=== PATIENT | female | born 1985 | race Native Hawaiian/Other Pacific Islander ===

== ENCOUNTER 2016-08-07 18:01 | Inpatient (IN) | payer OTHER ==
[2016-08-07 18:28] VITALS: BMI 28.5
[2016-08-07] MEDS: Lactated Ringer's 1,000 ML IV SCH (18:35)
[2016-08-07] MEDS ORDERED: Nalbuphine 20 mg/ml Inj (1 ml) IVP PRN (18:45)
[2016-08-07 19:19] LABS: BASO % 0.4 % (0.0-2.0); EOS % 0.6 % (0.0-4.0); HEMATOCRIT 37.2 % (34.0-47.0); LYMPH # 2.1 K/uL (1.0-4.3); LYMPH % 24.8 % (20.0-40.0); MEAN CELL VOLUME 79.7 fL (81.0-99.0); MEAN CORPUSCULAR HEMOGLOBIN 25.3 pg (27.0-31.0); MEAN CORPUSCULAR HGB CONC 31.7 g/dL (33.0-37.0); MEAN PLATELET VOLUME 10.8 fL (7.2-11.7); MONO # 0.8 K/uL (0.0-0.8); RED CELL DISTRIBUTION WIDTH 16.4 % (11.5-14.5); WHITE BLOOD COUNT 8.3 K/uL (4.8-10.8)
[2016-08-07 19:29] LABS: CHLORIDE 98 mmol/L (98-107); POTASSIUM 3.5 mmol/L (3.6-5.2); SODIUM 133 mmol/L (132-148)
[2016-08-07 19:31] LABS: CARBON DIOXIDE 22 mmol/L (22-30); GFR AFRICAN-AMERICAN > 60
[2016-08-07 19:32] LABS: ALB/GLOB RATIO 0.9 (1.0-2.1); ALKALINE PHOSPHATASE 282 U/L (38-126); ALT/SGPT 28 U/L (9-52); AST/SGOT 19 U/L (14-36); BILIRUBIN,DIRECT 0.3 mg/dL (0.0-0.4); BILIRUBIN,TOTAL 0.3 mg/dL (0.2-1.3); BLOOD UREA NITROGEN 6 mg/dL (7-17); CALCIUM 9.1 mg/dl (8.6-10.4); GLUCOSE,RANDOM 96 mg/dL (65-105)
[2016-08-07 20:22] LABS: RBC URINE 1 /hpf (0-3); URINE BACTERIA RARE (<OCC); URINE BILIRUBIN NEGATIVE (NEGATIVE); URINE BLOOD NEGATIVE (NEGATIVE); URINE COLOR Straw (YELLOW); URINE GLUCOSE (UA) NORMAL (Normal); URINE KETONE NEGATIVE (NEGATIVE); URINE LEUKOCYTE ESTERASE NEG Leu/uL (Negative); URINE PROTEIN NEGATIVE (NEGATIVE); URINE UROBILINOGEN NORMAL mg/dL (0.2-1.0); WBC URINE 1 /hpf (0-5)
[2016-08-08] MEDS: Lactated Ringer's 1,000 ML IV SCH (19:00)
[2016-08-09] MEDS ORDERED: Oxytocin 30 UNIT 500 ML IV ONE (01:53)
[2016-08-09] MEDS ORDERED: Oxytocin 30 UNIT 500 ML IV SCH ×2 (02:15)
[2016-08-09] MEDS: Lactated Ringer's 1,000 ML IV SCH ×3 (06:35→20:37)
[2016-08-09] MEDS ORDERED: cefOXitin IV 2 gm in Dextrose 50 ML IVPB ONE ×2 (09:49→09:54)
[2016-08-09] MEDS ORDERED: Sodium Citrate/Citric Acid 15 ml Sol PO ONE (09:49)
[2016-08-09] MEDS ORDERED: Oxytocin 10 Units/ml Inj ONE (09:52)
[2016-08-09] MEDS ORDERED: Sodium Citrate/Citric Acid 15 ml Sol ONE (09:52)
[2016-08-09] MEDS ORDERED: Phenylephrine 10 mg/ml Inj ONE (09:53)
[2016-08-09] MEDS ORDERED: Oxytocin 20 units in LR 2,000 ML IV ONE (09:53)
[2016-08-09] MEDS ORDERED: Morphine 1 mg/ml preservative-free Inj(Duramorph) ONE (09:56)
--- NOTE | 2016-08-09 10:06 | OBPN ---
Datetime: 08/09/2016 09:57 IP Progress Impression: Non-reassuring heart rate IP Informed Consent Obtain: Section Delivery IP Progress Plan: Deliver- Section Membranes, Provider: Intact Contraction Comments Provider: q 2-3 min now irrgular off of pitocin FHR - Baseline A Provider: 135 IP Fetus A Comments: decelerations down to 120 bpm x x 1 min with spontaneous return to baseline Gestation - Est Wks by US: 38.1 Presentation-Admit: Vertex IP Progress Note Comment: IOL for Cholestasis of @ 38+ wks s/p cervidil x 2, now on p itocin with late decerltaions not improving on left lateral decubitus position, oxygen, IVH. Pitocin was d/c and pt was counsled in regards to continuing induction of labor with possibility of more dece rltaions and intolerance to labor. Pt given options of more balloon followed by pitocin howev er declined and requesting to proceed with Cesearean section after failing to make progress. Pt advi sed latent phase of labor can be prolonged however would like to still proceed to cesearen section. VSS VE: FT/30/-3, vtx, intact EFM: 135/mod tatiana TOCO: q 2-3 min now irregular off of pitocin MEDS s/p cervidil x 2 Pitocin up to 16 mu/min A/P @ 38.1 wks GA IOL for cholestaissi of with intolerance to labor and failu re to progress -R/B/A/I of PLTCS d/w patient, consent signed -Anesthesia / OR aware -Cefoxitin 2gram IV x 1 -NPO, IVF -More to gravity -SCDS -Abdominal prep NICHD Variability Prov Fetus A: Moderate 6-25bpm Dilatation, Provider: 0 Effacement, Provider: 30 Station, Provider: -3 NICHD Decel Fetus A IP Provider: Late
[2016-08-09] MEDS ORDERED: Oxycodone/Acetaminophen 5/325 mg Tab PO PRN (10:11)
[2016-08-09] MEDS ORDERED: Hydrocodone/Acetaminophen 5 mg /300 mg Tab PO PRN (10:11)
--- NOTE | 2016-08-09 11:37 | OBDS ---
DELIVERY PERSONNEL Delivery Doctor: Cresencio Mayberry MD Anesthesiologist: Dr. Scherer MATERNAL INFORMATION Provider Comments: live male infant delivered cephalic presentation with loose nuchal cord x 1 easil y reduced and true knot in umbilical cord normal uterus, tubes and ovaries bilatearlly apgars 9,9 scrap iron loader present at delivery weight of 6lbs 11 ounces ebl 700ml LABOR SUMMARY EDC: 08/22/2016 00:00 No. Babies in Womb: 1 LABOR INFORMATION Cervical Ripening Agents: cervidil removed Other Ripening Agents: Cervidil removed Group B Beta Strep: Negative MEMBRANES Amniotic Fluid Amount: None STAGES OF LABOR Stage 3 hrs: 0 Stage 3 min: 2 CSECTION DELIVERY Primary Indication: Failed Induction Secondary Indication: Nonreassuring Status CSection Urgency: Non Elective CSection Incidence: Primary Labor: Labor Elective: Elective CSection Incision: Lower Uterine Transverse BABY A INFORMATION Delivery Date/Time: 08/09/2016 10:59 Method of Delivery: Born in Route : No : N/A Forceps: N/A Vacuum Extraction: N/A Shoulder Dystocia : No SHOULDER DYSTOCIA BABY A Infant Delivery Date/Time: 08/09/2016 10:59 PRESENTATION/POSITION BABY A Presentation: Cephalic Cephalic Presentation: Vertex Vertex Position: Right Occipital Anterior Breech Presentation: N/A PLACENTA INFORMATION BABY A Placenta Delivery Time : 08/09/2016 11:01 Placenta Method of Delivery: Manual Removal Placenta Status: Delivered SCORES BABY A Heart Rate 1 min: >100 bpm Resp Effort 1 min: Good Cry Reflex Irritability 1 min: Cough or Sneeze or Pulls Away Muscle Tone 1 min: Active Motion Color 1 min: Body [place], Extremities Blue SCORE 1 MIN: 9 Heart Rate 5 min: >100 bpm Resp Effort 5 min: Good Cry Reflex Irritability 5 min: Cough or Sneeze or Pulls Away Muscle Tone 5 min: Active Motion Color 5 min: Body [place], Extremities Blue SCORE 5 MIN: 9 INFANT INFORMATION BABY A Gestational Age at Delivery: 38.1 Gestational Status: Term Outcome : Liveborn Condition : Stable Sex: Male IDENTIFICATION/MEDS BABY A ID Band Number: [id number] ID Band Location: Left Leg; Left Arm Sensor Applied: Yes Sensor Number: [id number] Sensor Location : Cord Clamp Vitamin K Given : Not Given Erythromycin Given: Not Given WEIGHT/LENGTH BABY A Birthweight (gms): 3030 Infant Weight (lb): 6 Infant Weight (oz): 11 Infant Length Inches: 19.00 Length cms: 48.3 CORD INFORMATION BABY A No. Cord Vessels: 3 Nuchal Cord : Around Neck x1, Loose True Knot: 1 Cord Blood Taken: Yes Infant Suction: Mouth; Nose ASSESSMENT BABY A Infant Complications Other: see above Physical Findings at Delivery: Skin Tags; Extra Digit(s) Physical Findings Other: extra digit left hand by pink , skin tag right hand next to pinky Respirations: Grunting Manager Study/ALS Called : No Care By: Corwin Monroe RN Transferred To: Nursery
[2016-08-09] MEDS ORDERED: Lactated Ringer's 1,000 ML IV SCH (13:15)
[2016-08-09] MEDS: Oxycodone/Acetaminophen 5/325 mg Tab PO PRN (23:03)
[2016-08-10] MEDS: Oxycodone/Acetaminophen 5/325 mg Tab PO PRN ×3 (08:05→23:57)
[2016-08-10 08:08] LABS: BASO % 0.4 % (0.0-2.0); EOS # 0.1 K/uL (0.0-0.7); EOS % 0.7 % (0.0-4.0); HEMATOCRIT 34.1 % (34.0-47.0); LYMPH # 1.3 K/uL (1.0-4.3); LYMPH % 11.3 % (20.0-40.0); MEAN CELL VOLUME 81.3 fL (81.0-99.0); MEAN CORPUSCULAR HEMOGLOBIN 26.5 pg (27.0-31.0); MEAN CORPUSCULAR HGB CONC 32.6 g/dL (33.0-37.0); MEAN PLATELET VOLUME 10.3 fL (7.2-11.7); MONO # 1.2 K/uL (0.0-0.8); MONO % 10.5 % (0.0-10.0); RED CELL DISTRIBUTION WIDTH 16.4 % (11.5-14.5); WHITE BLOOD COUNT 11.8 K/uL (4.8-10.8)
[2016-08-10 08:18] LABS: CHLORIDE 99 mmol/L (98-107)
[2016-08-10 08:19] LABS: POTASSIUM 3.5 mmol/L (3.6-5.2); SODIUM 134 mmol/L (132-148)
[2016-08-10 08:21] LABS: GFR AFRICAN-AMERICAN > 60
[2016-08-10 08:22] LABS: CARBON DIOXIDE 25 mmol/L (22-30); GLUCOSE,RANDOM 90 mg/dL (65-105)
[2016-08-10 08:43] LABS: BLOOD UREA NITROGEN 3 mg/dL (7-17)
[2016-08-10 08:44] LABS: CALCIUM 8.5 mg/dl (8.6-10.4)
--- NOTE | 2016-08-10 08:50 | OBPPN ---
Datetime: 08/10/2016 08:35 PP Pain Prov: Within normal limits PP Nausea Prov: Denies PP Flatus Prov: Yes PP BM Prov: No PP Heart Prov: Normal PP Lungs Prov: Normal PP Abdomen/Uterus Prov: Normal PP Lochia Prov: Normal PP CVA Tenderness Prov: Normal PP Extremities Prov: Normal PP C/S Incision Prov: Normal PP Progress Prov: Normal PP Impression Prov: Normal progression PP Plan Prov: Continue present management PP Progress Note Prov: S-patient seen at bedside.reports adequate pain control.Denies nausea, vomiti ng, headache, chest pain, shortness of breath, numbness or tingling in hands and feet O-VSS Afebrile Fundus firm and below umbilicus Incision clean dry and intact extremities no calf tenderness A/P Patient s/p csection pod 1 doing well -continue routine care -encourage ambulation and po fluid intake Vital Signs Provider PP: Reviewed; Within Normal Limits
[2016-08-10] MEDS: Simethicone 80 mg Chewtab PO SCH ×4 (09:21→23:56)
[2016-08-10] MEDS: Prenatal Multivit/Folic Acid/Iron Tab PO SCH (09:21)
[2016-08-10] MEDS ORDERED: Bisacodyl 5mg EC Tab PO ONE ×2 (10:12→23:45)
--- NOTE | 2016-08-10 17:41 | PCM.SURG1 ---
Surgeon's Initial Post Op Note - Surgeon's Notes Surgeon: Katheryn Mayberry MD Shellfish Dredge Operator: Danielle Downs Type of Anesthesia: Spinal Anesthesia Administered By: Dr Crenshaw Pre-Operative Diagnosis: Term Intrauterine , failed induction of labor , non reassuring heart tracing, intolerance to labor Operative Findings: Live male , cephalic presentation, loos enuchal cord x 1 easily reduced, body cord, true knot, skin tag type lesion on both upper extremities. normal utererus, tubes and ovaries bilaterally. Fire Ranger present at [facility]. Agpars 9,9 weigt of 6ls [address] Gordon was coding assistant and present for entire case and essential in gaining entry, retraction, exposure, holding bladder blade, delivering the infant, closing all the layers and was present for the entire case. Post-Operative Diagnosis: same as above Operation Performed: Primary Low Trnasver Cesearen section Specimen/Specimens Removed: placenta Estimated Blood Loss: EBL {In ML}: 700 Blood Products Given: N/A Drains Used: No Drains Post-Op Condition: Good Date of Surgery/Procedure: 08/10/16 Time of Surgery/Procedure: 10:00
[2016-08-11 08:38] VITALS: BP 110/69; PULSE 83; RESP 18; TEMP 97; O2SAT 99
[2016-08-11] MEDS: Simethicone 80 mg Chewtab PO SCH ×2 (09:37→14:23)
[2016-08-11] MEDS: Oxycodone/Acetaminophen 5/325 mg Tab PO PRN ×2 (09:38→14:28)
[2016-08-11] MEDS: Prenatal Multivit/Folic Acid/Iron Tab PO SCH (09:43)
--- NOTE | 2016-08-11 10:46 | OBDCSUM ---
Datetime: 08/11/2016 10:42 Discharged to, Provider: Home Follow up at, Provider: 1-2week Disch Instr Activity: Normal activity Disch Instr Diet: Regular Discharge Instructions, Provider: Routine instructions given Discharge Diagnosis, Provider: Term Delivered Follow up in weeks, Provider: dr tripp Disch Activity Restrictions: No exercising; No lifting; No driving; Minimize walking; Minimize stair -climbing; No sexual activity; Nothing in vagina - Stow, tampons, douche Discharge Comment, Provider: no sex percocet prn f/u in 1-2week Discharge Diagnosis Prov Other: s/p repeat c/s
--- NOTE | 2016-08-11 10:46 | OBPPN ---
Datetime: 08/11/2016 10:41 PP Pain Prov: Within normal limits PP Nausea Prov: Denies PP Flatus Prov: Yes PP BM Prov: Yes PP Abdomen/Uterus Prov: Normal PP Lochia Prov: Normal PP Extremities Prov: Normal PP Comments Phys Exam Prov: fundus below um ext no edema,no warren incision clean and dry PP Impression Prov: Normal progression PP Plan Prov: Discharge PP Progress Note Prov: pt was sen at bed side, pain under control,no n.v, tolerating diet,voiding,mi n lochia, flatus+ pod#2 s/p c/s dc home no sex percocet prn f/u in [address] raphael aware Vital Signs Provider PP: Reviewed; Within Normal Limits
[2016-08-11] MEDS ORDERED: Influenza Virus Vaccine 45 mcg/0.5 ml Syr IM ONE (13:06)
--- NOTE | 2016-08-12 04:30 | OP ---
PROCEDURE DATE: 08/09/2016 DATE OF SURGERY: 08/09/2016 PREOPERATIVE CONDITION: The patient is a 31-year-old G-1, P 0 at 38 weeks that was seen in the Emerg ency Room due to intense itching. The patient also has cholestasis of and was subsequently admitted for induction of labor due to recommendation of delivery between 37 and 38 weeks. The alex ent was managed with Actigall t.i.d., but had increasing or worsening symptoms. The patient de nies any leakage of fluid, vaginal bleeding, had occasional contractions and decreased movement . The patient was subsequently admitted and Cervidil was administered. Cervidil was removed and the patient was essentially unchanged on vaginal exam and the second Cervidil was placed. Following hardik t over 20 milliunits of Pitocin were given and the patient was unchanged and on electronic amaya toring intermittent late decelerations were noted. The patient was appropriately managed and counseling aide ed. Risks, benefits, alternatives, indications of primary section was discussed with the chad tinoco. OPERATIVE SURGEON: Dr. Katheryn Mayberry. LYFT DRIVER: Dr. Ewa Gordon. TYPE OF ANESTHESIA: Spinal, administered by . PREOPERATIVE DIAGNOSES: Term intrauterine , failed induction of labor, non reassuring heart tracing, intolerance to labor remote from delivery. OPERATIVE FINDINGS: Live male , cephalic presentation, loose nuchal cord x 1 easily reduced. Body cord 2 ____ knot skin tag type lesion on the upper extremities, both sides. Normal uterus, tube s, and ovaries bilaterally. Clip Riveter present at delivery. Apgars 9 and 9, weight of 6 pounds [address] Gordon was surgical technology instructor and present for the entire case and was ess ential in gaining entry, retraction, exposure, holding the bladder blade, delivering the and c losing all the layers and was present for the entire case. POSTOPERATIVE DIAGNOSES: Term intrauterine , failed induction of labor, non reassuring feta l heart tracing, intolerance to labor remote from delivery. OPERATION PERFORMED: Primary low transverse section. SPECIMEN REMOVED: Placenta. ESTIMATED BLOOD LOSS: 700 mL. BLOOD PRODUCTS: None. COMPLICATIONS: None. CONDITION: Good. DESCRIPTION OF PROCEDURE: The patient was taken to the operating room where she was given spinal ane sthesia. Once this was found be adequate, she was positioned on the operating table in dorsal supine position. The patient was prepped and draped in the usual normal sterile fashion. A Quintanilla catheter was inserted. The patient was given preoperative prophylactic antibiotics and timeout to confirm co rrect patient and correct procedure. A Pfannenstiel skin incision was made with the scalpel and olson ied in line to the underlying fascia with the Bovie. The fascia was incised in the midline and incis ion extended laterally with the Bovie. Superior aspect of the fascial incision was grasped, elevated with Michael clamps and the underlying rectus muscles dissected off bluntly. Attention was then turn ed to the inferior aspect of the incision which in similar fashion was grasped with Michael clamps and the underlying muscle was sent off bluntly. Rectus muscles were then bluntly in the midli ne and the vesicouterine peritoneum was identified, entered bluntly with the Metzenbaum scissors and extended laterally and superiorly until there was good visualization of the bladder. The lower end o f the Flaco retractor was then inserted and the vesicouterine peritoneum was incised in a transvers e fashion with the Metzenbaum scissors. The bladder flap was created digitally. The lower end of th e Flaco was then inserted and the lower uterine segment was incised in a transverse fashion with th e scalpel. There was clear amniotic fluid noted. The surgeon's hand entered the uterine cavity and the incision was extended laterally bluntly. Surgeon's hand entered the uterine cavity and the infan t's head was delivered atraumatically. There was loose nuchal cord noted x 1 that was easily reduced followed by atraumatic delivery of the shoulders followed by the body. Both oral and nasal passages of the baby were bulb suctioned. The umbilical cord was clamped and cut and there was skin intact t ype lesions noted on both upper extremities. Clip Riveter was notified and also present during the d elivery. Baby was handed off to waiting pediatricians. Cord blood and cord gases were collected and sent x 2. The placenta was then delivered manually. The uterus was exteriorized and cleared of all clots and debris and the uterine incision was repaired with 0 Vicryl in running continuous locked fa shion, second layer with same suture was used to close the uterus 0 Vicryl in a running imbricated ma nner. There was good hemostasis noted at the uterine incision site and there were normal tubes and o varies bilaterally. The uterus was then returned to the abdomen and the paracolic gutters were clear ed of all clots and debris. There was again good hemostasis noted at the uterine incision site. Fol lowing this, the peritoneum was reapproximated and closed with 2-0 chromic in a continuous manner. T he rectus was reapproximated and closed with 2-0 chromic in interrupted manner. The subcutaneous spa ce was closed with 2-0 plain interrupted manner and the skin was reapproximated and closed with 4-0 M onocryl in a running subcuticular needle in a continuous fashion. At the end of the procedure, all n eedle, sponge and instrument counts were noted to be correct x 2. The patient tolerated the procedur e well and was transferred to recovery room in stable condition. Katheryn Mayberry MD cc: [id number] TT: 08/12/2016 04:30:07 tn
== END 2016-08-11 17:15 | disposition home or self-care (01) | DRG 765 ==
LOC: C.EROB 18:01 → C.4D 18:29 → C.4M 08-09 14:21
PROVIDERS: ADMIT Obstetrics & Gynecology; ATTEND Obstetrics & Gynecology
PROC: 3E0P7GC Introduction of Other Therapeutic Substance into Female Reproductive, Via Natural or Artificial Opening (ICD-10-PCS; 2016-08-07)
PROC: 10D00Z1 Extraction of Products of Conception, Low, Open Approach (ICD-10-PCS; principal; 2016-08-09)
DX: O61.9 Failed induction of labor, unspecified (principal); O26.62 Liver and biliary tract disorders in childbirth; O69.81X0 Labor and delivery complicated by cord around neck, without compression, not applicable or unspecified; O76 Abnormality in fetal heart rate and rhythm complicating labor and delivery; Z37.0 Single live birth; Z3A.38 38 weeks gestation of pregnancy